=== PATIENT | male | born 1970 | race Caucasian/White ===

== ENCOUNTER 2021-11-05 19:39 | Emergency (ER) | payer OTHER ==
[2021-11-05] MEDS ORDERED: AMOX/CLAV 875 MG/125 MG TABLET PO STA (20:43)
--- NOTE | 2021-11-05 20:45 | ED Physician Documentation ---
PD HPI UPPER EXT INJURY - Stated complaint Stated Complaint: DOG BITE - Chief complaint Chief Complaint: Laceration - History obtained from History obtained from: Patient - History of Present Illness Location: Left, Hand Where injury occurred: Home Timing - onset: Today Pain level max: 4 Pain level now: 3 Improved by: Rest Worsened by: Moving, Palpating Recently seen: Not recently seen - Additonal information Additional information: Patient is a 51-year-old male who presents to the emergency department with a dog bite to the left hand. This occurred at home. Nothing makes it better or worse. Tetanus up-to-date. Patient is right-handed. Has a laceration to the dorsum of the left hand as well as the lateral aspect of the left second digit. Review of Systems Constitutional: denies: Fever Neurologic: denies: Numbness PD PAST MEDICAL HISTORY - Past Medical History Past Medical History: No - Past Surgical History Past Surgical History: No - Present Medications Home Medications: Ambulatory Orders Medication Instructions Recorded Confirmed Amox/Clav 875/125 [Augmentin] 1 tab PO Q12H #20 tablet 11/05/21 - Allergies Allergies/Adverse Reactions: Allergies Allergy/AdvReac Type Severity Reaction Status Date / Time No Known Drug Allergies Allergy Verified 11/05/21 19:50 - Living Situation Living Situation: reports: With family Living Arrangement: reports: At home - Social History Does the pt have substance abuse?: No - Family History Family history: reports: Non contributory - Immunizations Immunizations are current?: Yes Immunizations: TDAP current <10years PD ED PE NORMAL - Vitals Vital signs reviewed: Yes - General General: Alert and oriented X 3, No acute distress - Derm Derm: Warm and dry - Neuro Neuro: Alert and oriented X 3 PD ED PE EXPANDED - Extremities BERNARD UE/Hands Visual: 1 - laceration (2 cm, curved, superficial. Neurovascular intact. No tendon injury) 2 - laceration (2 cm, curved, neurovascular intact, no tendon injury.) Results - Vitals Vitals: Vital Signs - 24 hr 11/05/21 11/05/21 19:44 20:54 Temperature 36.6 C Heart Rate 95 71 Respiratory 17 16 Rate Blood Pressure 164/94 H 133/93 H O2 Saturation 99 98 Oxygen O2 Source Room air Procedures - Laceration (location) Left hand dorsum Length in cm: 2 Wound type: Curved, Into subcut fat, Clean Neurovascular status: Sensory intact, Motor intact, Vascular intact Tendon involvement: Tendon intact Anesthesia: Lidocaine 1% Wound preparation: Irrigated copiously NS, Wound explored, To the base Skin layer closure: Nylon, Interrupted, Size #-0 - enter number (4) Other: Patient tolerated well, No complications, Neurovascular intact, Tetanus UTD Left hand second digit, lateral aspect Length in cm: 2 Wound type: Curved, Into subcut fat, Clean Neurovascular status: Sensory intact, Motor intact, Vascular intact Tendon involvement: Tendon intact Anesthesia: Lidocaine 1% with epi Wound preparation: Irrigated copiously NS, Wound explored, To the base Skin layer closure: Nylon, Interrupted, Size #-0 - enter number (4) Other: Patient tolerated well, No complications, Neurovascular intact, Tetanus UTD PD MEDICAL DECISION MAKING - ED course Complexity details: reviewed results, re-evaluated patient, considered differential, d/w patient ED course: Lacerations repaired. Tolerated well. Tetanus up-to-date. Augmentin given. No vascular, neurological or tendon injuries. Warnings of infection and inst ructions on wound care given at bedside. Also counseled on how to minimize scarring. Patient counseled regarding signs and symptoms for which I believe and urgent re-evaluation would be necessary. Patient with good understanding of and agreement to plan and is comfortable going home at this time This document was made in part using voice recognition software. While efforts are made to proofread this document, sound alike and grammatical errors may occur. Departure - Departure Disposition: 01 Home, Self Care Clinical Impression: Laceration Dog bite Qualifiers: Encounter type: initial encounter Qualified Code(s): W54.0XXA - Bitten by dog, initial encounter Condition: Good Instructions: ED Bite Dog, ED Laceration Hand Follow-Up: your,doctor in 10-14 days [Other] Prescriptions: Amox/Clav 875/125 [Augmentin] 1 tab PO Q12H #20 tablet Comments: Keep the wound clean. Follow-up with your doctor for further care. The sutures should be removed in about 10 to 14 days. This can be done with your doctor or you can return here. Take all antibiotics until gone. [facility] prescriptions [facility] in [address]. Return if you notice redness, swelling or drainage from the wound. Discharge Date/Time: 11/05/21 20:59
[2021-11-05 20:55] VITALS: BP 133/93
== END 2021-11-05 20:59 | disposition home or self-care (01) ==
LOC: ED 19:39
DX: S61.412A Laceration without foreign body of left hand, initial encounter (principal); S61.211A Laceration without foreign body of left index finger without damage to nail, initial encounter; W54.0XXA Bitten by dog, initial encounter; Y93.K9 Activity, other involving animal care; Y92.009 Unspecified place in unspecified non-institutional (private) residence as the place of occurrence of the external cause
CPT/HCPCS: 12002; 99282; A9270

== ENCOUNTER 2021-11-14 13:41 | Emergency (ER) | payer OTHER ==
[2021-11-14 13:47] VITALS: BP 143/79
--- NOTE | 2021-11-14 13:56 | ED Physician Documentation ---
PD HPI WOUND RECHECK - Stated complaint Stated Complaint: STITCH REMOVAL - Chief complaint Chief Complaint: Wound - Histroy obtained from History obtained from: Patient (He was here 9 days ago after dog bite with sutures in the left hand and here for suture removal. No stated complaints.) Review of Systems Constitutional: reports: Reviewed and negative Eyes: reports: Reviewed and negative Ears: reports: Reviewed and negative Cardiac: reports: Reviewed and negative PD PAST MEDICAL HISTORY - Past Surgical History Past Surgical History: No - Present Medications Home Medications: Ambulatory Orders Medication Instructions Recorded Confirmed No Known Home Medications 11/14/21 11/14/21 - Allergies Allergies/Adverse Reactions: Allergies Allergy/AdvReac Type Severity Reaction Status Date / Time No Known Drug Allergies Allergy Verified 11/14/21 13:47 - Social History Does the pt have substance abuse?: No - Immunizations Immunizations are current?: Yes Immunizations: TDAP current <10years PD ED PE NORMAL - Vitals Vital signs reviewed: Yes - General General: Alert and oriented X 3, No acute distress - Extremities Extremities: Other (There is a wound on the dorsum of the hand and one on the dorsum of the second digit, they are clean dry well approximated with sutures in place which were removed during exam and replaced with Steri-Strips.) - Neuro Neuro: Alert and oriented X 3, Normal speech Results - Vitals Vitals: Vital Signs - 24 hr 11/14/21 13:43 Temperature 36.4 C L Heart Rate 72 Respiratory 16 Rate Blood Pressure 143/79 H O2 Saturation 97 Oxygen O2 Source Room air Departure - Departure Disposition: 01 Home, Self Care Clinical Impression: Visit for suture removal Condition: Stable
== END 2021-11-14 13:57 | disposition home or self-care (01) ==
LOC: ED 13:41
DX: S61.412D Laceration without foreign body of left hand, subsequent encounter (principal); W54.0XXD Bitten by dog, subsequent encounter
CPT/HCPCS: 99281